=== PATIENT | male | born 1970 | race African-American/Black ===

== ENCOUNTER 2017-08-27 17:36 | Emergency (ER) | payer SELFPAY ==
[2017-08-27] MEDS: PENICILLIN V POTASSIUM 500 MG TAB PO (21:05)
[2017-08-27] MEDS: NORCO 5/325MG TABLET (BULK FOR ED) PO (21:05)
== END 2017-08-27 21:10 | disposition home or self-care (01) ==
LOC: M ED 17:36
DX: K04.7 Periapical abscess without sinus (principal); F17.210 Nicotine dependence, cigarettes, uncomplicated
CPT/HCPCS: 99282